=== PATIENT | female | born 1965 | race Hispanic/Latino ===

== ENCOUNTER 2024-10-28 15:06 | Emergency (ER) | payer OTHER ==
[~2024-10-28] VITALS: Ht 157.5 cm; Wt 69.2 kg
[2024-10-28] MEDS ORDERED: MELOXICAM7.5 MG PO (15:59)
[2024-10-28] MEDS ORDERED: METHOCARBAMOL750 MG PO (15:59)
[2024-10-28] MEDS ORDERED: ELIQUIS5 MG PO (15:59)
[2024-10-28] MEDS ORDERED: SYNTHROID125 MCG PO (15:59)
[2024-10-28] MEDS ORDERED: OZEMPIC1 MG/0.71 (15:59)
[2024-10-28] MEDS ORDERED: METOPROLOL SUCC25 MG PO (15:59)
[2024-10-28] MEDS ORDERED: NEURONTIN100 MG PO (15:59)
[2024-10-28 16:50] LABS: FREE THYROXINE INDEX 3.3908 (1.4-3.8); T3 UPTAKE 25.08 % (22.5-37.0); THYROID STIMULATING HORMONE 0.777 uIU/mL (0.350-4.940)
[2024-10-28 16:51] LABS: T4 (THYROXINE) 13.52 ug/dL (4.5-10.9)
[2024-10-28] MEDS ORDERED: MACROBID 100 M100 MG PO (18:28)
[2024-10-28 18:47] VITALS: PULSE 66; RESP 16; TEMP 98; O2SAT 97
== END 2024-10-28 18:47 | disposition home or self-care (01) ==
LOC: FSED 15:11
DX: R53.1 Weakness (principal); N39.0 Urinary tract infection, site not specified; R53.83 Other fatigue; I48.91 Unspecified atrial fibrillation; E03.9 Hypothyroidism, unspecified; I10 Essential (primary) hypertension; E78.5 Hyperlipidemia, unspecified; Z11.52 Encounter for screening for COVID-19; R94.31 Abnormal electrocardiogram [ECG] [EKG]; Z86.73 Personal history of transient ischemic attack (TIA), and cerebral infarction without residual deficits
CPT/HCPCS: 0223U; 36415; 70450; 71046; 80053; 80076; 81003; 83518; 83880; 84436; 84443; 84479; 84484; 85025; 85379; 85610; 93005; 99284